=== PATIENT | female | born 1970 | race Caucasian/White ===

== ENCOUNTER 2019-03-17 10:10 | Emergency (ER) | payer OTHER ==
[2019-03-17 10:30] VITALS: TEMP 98; BMI 27.0
[2019-03-17] MEDS ORDERED: METOCLOPRAMIDE HCL INJECTION 10 MG/2 ML VIAL IVPB ONE (14:11)
[2019-03-17] MEDS ORDERED: ACETAMINOPHEN 1000 MG/100 ML VIAL (NON FORMULARY) IVPB ONE (14:11)
[2019-03-17] MEDS ORDERED: SODIUM CHLORIDE 1,000 ML IV STA (14:11)
[2019-03-17] MEDS ORDERED: ACETAMINOPHEN INJECTION 100 ML IVPB ONE (15:10)
[2019-03-17] MEDS ORDERED: METOCLOPRAMIDE HCL INJECTION 10 MG/2 ML VIAL ONE (15:10)
[2019-03-17 15:21] LABS: BASO % 0.7 % (0-2.0); EOS % 1.1 % (0-4.5); HEMATOCRIT 40.6 % (32.4-45.2); HEMOGLOBIN 13.7 GM/dL (10.7-15.3); LYMPH % 47.6 % (8-40); MCH 30.7 pg (25.7-33.7); MCHC 33.8 g/dl (32.0-36.0); MEAN CELL VOLUME 90.8 fl (80-96); MEAN PLT VOLUME 7.7 fl (7.5-11.1); MONO % 7.2 % (3.8-10.2); NEUT % 43.4 % (42.8-82.8); PLATELET COUNT 249 K/MM3 (134-434); RBC 4.48 M/mm3 (3.60-5.2); RDW 13.2 % (11.6-15.6); WHITE BLOOD COUNT 6.3 K/mm3 (4.0-10.0)
[2019-03-17 15:52] LABS: ALBUMIN 4.1 g/dl (3.4-5.0); ALK PHOS 101 U/L (45-117); ANION GAP 9 MMOL/L (8-16); BILIRUBIN,TOTAL 0.4 mg/dL (0.2-1); BLOOD UREA NITROGEN 10.6 mg/dL (7-18); CALCIUM 9.1 mg/dL (8.5-10.1); CHLORIDE 106 mmol/L (98-107); CO2 25 mmol/L (21-32); CREATININE 0.5 mg/dL (0.55-1.3); GLUCOSE,RANDOM 89 mg/dL (74-106); POTASSIUM 3.8 mmol/L (3.5-5.1); SGOT/AST 27 U/L (15-37); SGPT/ALT 41 U/L (13-61); SODIUM 140 mmol/L (136-145); TOT PROT 7.4 g/dl (6.4-8.2)
[2019-03-17 15:58] LABS: PH,URINE 6.5 (5.0-8.0); URINE APPEARANCE CLEAR; URINE BILIRUBIN NEGATIVE (NEGATIVE); URINE COLOR YELLOW; URINE GLUCOSE (UA) NEGATIVE (NEGATIVE); URINE KETONE NEGATIVE (NEGATIVE); URINE LEUK ESTERASE NEGATIVE (NEGATIVE); URINE NITRITE NEGATIVE (NEGATIVE); URINE PROTEIN NEGATIVE (NEGATIVE); URINE UROBILINOGEN 0.2 mg/dL (0.2-1.0)
[2019-03-17 17:12] VITALS: BP 123/86; PULSE 59
--- NOTE | 2019-03-17 19:03 | PDOC ---
Documentation entered by Rogelio Gaines SCRIBE, acting as scribe for Vishnu Calle MD. Vishnu Calle MD: This documentation has been prepared by the Eder lassiter Daniel, SCRIBE, under my direction and personally reviewed by me in its entirety. I confirm that the documentation accurately reflects all work, treatment, procedures, and medical decision making performed by me. History of Present Illness - General Chief Complaint: Lightheaded Stated Complaint: DIZZNESS/NAUSEA Time Seen by Provider: 03/17/19 12:13 History Source: Patient Exam Limitations: No Limitations - History of Present Illness Initial Comments: 03/17/19 13:32 The patient is a 48 year old female with a past medical history of HLD, breast ca in remission x 5yrs (on daily anastrazole) and gastritis presents to the emergency department with 3 days of left-sided chest pain associated with lightheadedness, global gradual onset headache and nausea. Patient states her main concern is the chest pain as she has high cholesterol and she is worried about her heart. She reports identical symptoms 6 months ago for which she was evaluated at a aqu[facility] tank attendant at [place] and had a negative workup including stress test. At this time she reports all of her symptoms have resolved but states "I just want to make sure my heart is okay." She denies any triggers for the chest pain. She states it comes and goes, and lasts for a minute at a time. She denies any associated diaphoresis, vomiting, blurry vision, focal weakness or numbness, stiff neck, abdominal pain, lower extremity edema. States her symptoms not get worse with exertion. Denies recent travel or immobility. Allergies: penicillins PCP: Armin Cohn Past History - Past Medical History Allergies/Adverse Reactions: Allergies Allergy/AdvReac Type Severity Reaction Status Date / Time Penicillins Allergy Verified 03/17/19 10:30 Home Medications: Ambulatory Orders Anastrozole [Arimidex -] 1 mg PO DAILY 03/17/19 Atorvastatin Ca [Lipitor] 40 mg PO HS 03/17/19 Omeprazole 20 mg PO DAILY 03/17/19 Cancer: Yes (LT BREAST CA) COPD: No HTN: Yes - Surgical History Abdominal Surgery: No - Suicide/Smoking/Psychosocial Hx Smoking Status: No Smoking History: Never smoked Number of Cigarettes Smoked Daily: 0 Information on smoking cessation initiated: No Hx Alcohol Use: No Drug/Substance Use Hx: No Review of Systems - Review of Systems Able to Perform ROS?: Yes Comments:: 03/17/19 13:32 GENERAL/CONSTITUTIONAL: No fever or chills. No weakness. HEAD, EYES, EARS, NOSE AND THROAT: No visual sxs. No ear discharge. No sore throat. GASTROINTESTINAL: +nausea. No vomiting, diarrhea or constipation. GENITOURINARY: No dysuria, frequency, or change in urination. CARDIOVASCULAR: +chest pain. No shortness of breath. RESPIRATORY: No cough, wheezing, or hemoptysis. MUSCULOSKELETAL: No joint or muscle swelling or pain. No neck or back pain. SKIN: No rash NEUROLOGIC: +lightheadedness. +headache. No loss of consciousness or change in strength/sensation. ENDOCRINE: No increased thirst. No abnormal weight change. HEMATOLOGIC/LYMPHATIC: No anemia, easy bleeding, or history of blood clots. ALLERGIC/IMMUNOLOGIC: No hives or skin allergy. *Physical Exam - Vital Signs Last Vital Signs Temp Pulse Resp BP Pulse Ox 98 F 79 19 128/93 99 03/17/19 10:28 03/17/19 10:28 03/17/19 10:28 03/17/19 10:28 03/17/19 10:28 - Physical Exam Comments: 03/17/19 13:33 GENERAL: Awake, alert, and fully oriented, in no acute distress talking on the phone. HEAD: No signs of trauma EYES: PERRLA, EOMI, sclera anicteric, conjunctiva clear. 20/20 VA OU ENT: Auricles normal inspection, hearing grossly normal, nares patent, oropharynx clear without exudates. Moist mucosa NECK: Normal ROM, supple, no lymphadenopathy, JVD, or masses LUNGS: Breath sounds equal, clear to auscultation bilaterally. No wheezes, and no crackles HEART: Regular rate and rhythm, normal S1 and S2, no murmurs, rubs or gallops ABDOMEN: Soft, nontender, normoactive bowel sounds. No guarding, no rebound. No masses EXTREMITIES: Normal range of motion, no edema. No clubbing or cyanosis. No cords , erythema, or tenderness BACK: No midline spinal tenderness in cervical/thoracic/lumbar region NEUROLOGICAL: Normal speech, cranial nerves intact, negative pronator drift, 5/ 5 strength in all 4 extremities, normal sensation to light touch in all 4 extremities, normal cerebellar exam, normal gait, normal reflexes and tone SKIN: Warm, Dry, normal turgor, no rashes or lesions noted. Heart Score/ECG Review - History History: Slightly suspicious - Electrocardiogram EKG: Non specific repolarization disturbance - Age Age: 45-65 - Risk Factors Risk Factors Heart Score: Yes Hx Hypercholesterolemia Based on the list above the patient has:: 1-2 risk factors - Troponin Troponin: </= normal limit - Score Heart Score - Total: 3 #1 EKG read and int by me: NSR, rate 65. Normal axis and intervals. No DIMITRIOS. Diffuse TW flattening II, III, avf, V3-V6. Compared to EKG faxed from Dr. Cohn 's office, no significant change ED Treatment Course - LABORATORY CBC & Chemistry Diagram: 03/17/19 15:00 03/17/19 15:00 - ADDITIONAL ORDERS Additional order review: Laboratory Results 03/17/19 03/17/19 03/17/19 15:00 15:00 15:00 Sodium Potassium Chloride Carbon Dioxide Anion Gap BUN Creatinine Est GFR (CKD-EPI)AfAm Est GFR (CKD-EPI)NonAf Random Glucose Calcium Magnesium 2.3 Total Bilirubin AST ALT Alkaline Phosphatase Troponin I Total Protein Albumin Urine Color Yellow Urine Appearance Clear Urine pH 6.5 Ur Specific [place] 1.008 L Urine Protein Negative Urine Glucose (UA) Negative Urine Ketones Negative Urine Blood Negative Urine Nitrite Negative Urine Bilirubin Negative Urine Urobilinogen 0.2 Ur Leukocyte Esterase Negative Urine HCG, Qual Negative 03/17/19 15:00 Sodium 140 Potassium 3.8 Chloride 106 Carbon Dioxide 25 Anion Gap 9 BUN 10.6 Creatinine 0.5 L Est GFR (CKD-EPI)AfAm 130.79 Est GFR (CKD-EPI)NonAf 112.85 Random Glucose 89 Calcium 9.1 Magnesium Total Bilirubin 0.4 AST 27 ALT 41 Alkaline Phosphatase 101 Troponin I < 0.02 Total Protein 7.4 Albumin 4.1 Urine Color Urine Appearance Urine pH Ur Specific [place] Urine Protein Urine Glucose (UA) Urine Ketones Urine Blood Urine Nitrite Urine Bilirubin Urine Urobilinogen Ur Leukocyte Esterase Urine HCG, Qual 03/17/19 15:00 RBC 4.48 MCV 90.8 MCHC 33.8 RDW 13.2 MPV 7.7 Neutrophils % 43.4 Lymphocytes % 47.6 H D Monocytes % 7.2 Eosinophils % 1.1 Basophils % 0.7 D - RADIOLOGY Radiology Studies Ordered: Category Date Time Status CHEST PA & LAT [RAD] Stat Radiology 03/17/19 16:23 Taken - Medications Given in the ED: ED Medications Discontinued Medications Generic Name Dose Route Start Last Admin Trade Name Lamberto PRN Reason Stop Dose Admin Acetaminophen 1,000 mg 03/17/19 14:11 03/17/19 15:18 Ofirmev Injection - IVPB 03/17/19 14:12 1,000 mg ONCE ONE Administration Sodium Chloride 1,000 mls @ 1,000 mls/hr 03/17/19 14:11 03/17/19 15:18 Normal Saline - IV 03/17/19 15:10 1,000 mls/hr ASDIR STA Administration Metoclopramide HCl 10 mg 03/17/19 14:11 03/17/19 15:18 Reglan Injection - IVPB 03/17/19 14:12 10 mg ONCE ONE Administration Medical Decision Making - Medical Decision Making 48yo F hx HL presents to the ED with 3 days of intermittent LSCP a/w headache, lightheadedness, and nausea. 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 I answered all of the patient's questions. The patient was satisfied with the care received and felt comfortable with the discharge plan and treatment plan. The patient will call their primary care physician within 24 hours to arrange follow-up and will return to the Emergency Department with any new, persistent or worsening symptoms. *DC/Admit/Observation/Transfer Diagnosis at time of Disposition: Chest pain, Headache, Nausea - Discharge Dispostion Disposition: HOME Condition at time of disposition: Improved Decision to Admit order: No - Referrals Referrals: Armin Cohn [Primary Care Provider] - - Patient Instructions Printed Discharge Instructions: DI for Chest Pain Additional Instructions: Follow up with Dr. Cohn and your aquarium tank attendant within 2-3 days Continue all of your home medications Return to the emergency department if you have any new, worsening, or concerning symptoms - Post Discharge Activity - Attestations Physician Attestion: 03/17/19 16:57 I, Dr. Vishnu Calle MD, attest that this document has been prepared under my direction and personally reviewed by me in its entirety. I further attest, that it accurately reflects all work, treatment, procedures and medical decision -making performed by me.
--- NOTE | 2019-03-18 11:01 | EKG ---
Test Reason : Blood Pressure : / mmHG Vent. Rate : 065 BPM Atrial Rate : 065 BPM P-R Int : 134 ms QRS Dur : 084 ms QT Int : 428 ms P-R-T Axes : 034 043 018 degrees QTc Int : 445 ms NORMAL SINUS RHYTHM NONSPECIFIC T WAVE ABNORMALITY ABNORMAL ECG WHEN COMPARED WITH ECG OF 16-MAR-2007 13:52, NO SIGNIFICANT CHANGE WAS FOUND Confirmed by Pb Pringle ([id number]) on 03/18/2019 11:01:26 AM Referred By: Confirmed By:Pb Pringle
== END 2019-03-17 17:12 | disposition home or self-care (01) ==
LOC: JER 10:10
PROC: 3E033NZ Introduction of Analgesics, Hypnotics, Sedatives into Peripheral Vein, Percutaneous Approach (ICD-10-PCS; principal; 2019-03-17)
PROC: 3E033GC Introduction of Other Therapeutic Substance into Peripheral Vein, Percutaneous Approach (ICD-10-PCS; 2019-03-17)
DX: R07.9 Chest pain, unspecified (principal); R11.0 Nausea; R51 Headache; R42 Dizziness and giddiness; I10 Essential (primary) hypertension; E78.00 Pure hypercholesterolemia, unspecified; Z85.3 Personal history of malignant neoplasm of breast; Z88.0 Allergy status to penicillin
CPT/HCPCS: 36415; 71046-TC-FY; 80053; 81003; 83735; 84484; 84703; 85025; 93005; 93010; 96374; 96375; 99284-25; J0131; J7030